=== PATIENT | female | born 1995 | race Caucasian/White ===

== ENCOUNTER 2016-10-11 13:17 | Emergency (ER) | payer BC ==
[2016-10-11 15:01] VITALS: BP 108/73
--- NOTE | 2016-10-11 15:25 | UC ---
Knee Pain HPI - HPI Summary HPI Summary: RIGHT KNEE PAIN X 1 DAY S/P FALL SHE WAS RUNNING , TWISTED HER RIGHT KNEE THIS AM HX OF RIGHT PATELLA DISLOCATION + PAIN , SWELLING OF RIGHT KNEE - History of Current Complaint Chief Complaint: UCLowerExtremity Stated Complaint: RIGHT KNEE INJURY Time Seen by Provider: 10/11/16 15:07 Hx Obtained From: Patient, Family/Contact Center Assistant Hx Last Menstrual Period: 03/02/16 Onset/Duration: Sudden Onset, Lasting Days - 1, Still Present Severity Initially: Severe Severity Currently: Severe Character: Aching, Throbbing Aggravating Factor(s): Movement, Weight Bearing Alleviating Factor(s): Rest, Cold Associated Signs And Symptoms: Positive: Swelling, Weakness. Negative: Redness , Fever, Numbness Able to Bear Weight: Yes - Allergies/Home Medications Allergies/Adverse Reactions: Allergies Allergy/AdvReac Type Severity Reaction Status Date / Time Ibuprofen Allergy Hives Verified 10/11/16 14:52 Home Medications: Home Medications Control Med 1 tab DAILY 10/11/16 [History] PMH/Surg Hx/FS Hx/Imm Hx Cardiovascular History Of: Denies: Hypertension Respiratory History Of: Denies: Asthma - Surgical History Surgical History: None - Family History Known Family History: Positive: Cardiac Disease, Hypertension, Diabetes - Social History Alcohol Use: None Substance Use Type: None Smoking Status (MU): Never Smoked Tobacco Have You Smoked in the Last Year: No - Immunization History Most Recent Influenza Vaccination: 2015 Most Recent Tetanus Shot: UTD Most Recent Pneumonia Vaccination: N/A Vaccination Up to Date: Yes Review of Systems Constitutional: Negative Skin: Negative Eyes: Negative ENT: Negative Respiratory: Negative All Other Systems Reviewed And Are Negative: Yes Physical Exam Triage Information Reviewed: Yes Appearance: Well-Appearing, Well-Nourished, Pain Distress Vital Signs: Initial Vital Signs Temp 99.1 F 10/11/16 14:53 Pulse 94 10/11/16 14:53 Resp 18 10/11/16 14:53 BP 108/73 10/11/16 14:53 Pulse Ox 99 10/11/16 14:53 Vital Signs Reviewed: Yes Eyes: Positive: Conjunctiva Clear ENT: Positive: Normal ENT inspection, Hearing grossly normal, Pharynx normal Neck: Positive: Supple, Nontender, No Lymphadenopathy Respiratory: Positive: Chest non-tender, Lungs clear, Normal breath sounds Cardiovascular: Positive: RRR, No Murmur, Pulses Normal Musculoskeletal: Positive: Other: - RIGHT KNEE: + SWELLING , + LARGE EFFUSION , DIFFUSE TENDERNESS, LIMITED ROM ON FLEXION UC Physical Exam Vital Signs On Initial Exam: Initial Vitals Temp Pulse Resp BP Pulse Ox 99.1 F 94 18 108/73 99 10/11/16 14:53 10/11/16 14:53 10/11/16 14:53 10/11/16 14:53 10/11/16 14:53 Knee Pain Course/Dx - Differential Dx/Diagnosis Provider Diagnoses: RIGHT KNEE INJURY. RIGHT KNEE EFFUSION Discharge - Discharge Plan Condition: Stable Disposition: HOME Patient Education Materials: Swollen Knee Joint (ED) Referrals: Farheen Freitas MD [Primary Care Provider] - Narayan Morocho MD [Medical Doctor] - As Soon As Possible
--- NOTE | 2016-10-11 16:10 | RAD ---
HISTORY: Status post fall, twisted right knee COMPARISONS: April 13, 2016 VIEWS: 5, Frontal, lateral, axial, and oblique views of the right knee FINDINGS: BONE DENSITY: Normal. BONES: There is a small bone fragment along the medial aspect of the patella on the axial views. JOINTS: There is a lipohemarthrosis. ALIGNMENT: There is no dislocation. SOFT TISSUES: Unremarkable. OTHER FINDINGS: None. IMPRESSION: THERE IS LIPOHEMARTHROSIS SUGGESTIVE OF OCCULT FRACTURE GIVEN THE HISTORY OF TRAUMA. THERE IS A SMALL BONE FRAGMENT ALONG THE MEDIAL ASPECT OF THE PATELLA WHICH MAY REFLECT AN AVULSION FRACTURE.. RECOMMEND CORRELATION WITH SITE OF PAIN.
== END 2016-10-11 16:06 | disposition home or self-care (01) ==
LOC: UCCORT 13:17
DX: S89.91XA Unspecified injury of right lower leg, initial encounter (principal); W19.XXXA Unspecified fall, initial encounter; Y93.02 Activity, running; Y92.9 Unspecified place or not applicable; M25.461 Effusion, right knee; Z88.6 Allergy status to analgesic agent
CPT/HCPCS: 99212; G0463

== ENCOUNTER 2018-03-27 15:02 | Emergency (ER) | payer BC ==
[2018-03-27 16:25] VITALS: BP 145/93
--- NOTE | 2018-03-27 16:58 | UC ---
Knee Pain HPI - HPI Summary HPI Summary: C/O dislocation right knee cap/ recurrent. Last time 2 years ago. On crutches. Also c/o congestion, sore throat and coughing with coughing fits. Wheezing with exercise. - History of Current Complaint Chief Complaint: UCGeneralIllness Stated Complaint: R KNEE INJ & COLD SYMPTOMS FOR 2 WKS Time Seen by Provider: 03/27/18 16:48 Hx Obtained From: Patient Hx Last Menstrual Period: 11/28/17 -3 MONTH BC CYCLE SKIPPED [place] WEEK THIS MONTH ?: No Onset/Duration: Sudden Onset - knee pain this afternoon., Lasting Weeks - URI symptoms for 2 weeks. Severity Currently: Moderate Pain Intensity: 5 Character: Dull, Aching, Throbbing Aggravating Factor(s): Movement, Weight Bearing Alleviating Factor(s): Rest Associated Signs And Symptoms: Positive: Swelling, Bruising. Negative: Weakness , Numbness, Tingling Able to Bear Weight: No - Allergies/Home Medications Allergies/Adverse Reactions: Allergies Allergy/AdvReac Type Severity Reaction Status Date / Time ibuprofen Allergy Hives Verified 03/27/18 16:23 PMH/Surg Hx/FS Hx/Imm Hx Previously Healthy: Yes - Surgical History Surgical History: None - Family History Known Family History: Positive: Cardiac Disease, Hypertension, Diabetes - Social History Occupation: Student Lives: Dormitory/Roommates Alcohol Use: Occasionally Substance Use Type: None Smoking Status (MU): Never Smoked Tobacco Have You Smoked in the Last Year: No - Immunization History Most Recent Influenza Vaccination: 2016 Most Recent Tetanus Shot: UTD Most Recent Pneumonia Vaccination: N/A Vaccination Up to Date: Yes Review of Systems ENT: Nasal Discharge Respiratory: Shortness Of Breath - with exertion, Cough Musculoskeletal: Arthralgia - right knee Is Patient Immunocompromised?: No All Other Systems Reviewed And Are Negative: Yes Physical Exam Triage Information Reviewed: Yes Appearance: Ill-Appearing, Pain Distress, Obese Vital Signs: Initial Vital Signs Temp 98.1 F 03/27/18 16:19 Pulse 113 03/27/18 16:19 Resp 16 03/27/18 16:19 BP 145/93 03/27/18 16:19 Pulse Ox 100 03/27/18 16:19 Eyes: Positive: Conjunctiva Clear ENT: Positive: Nasal congestion - with allergic changes., TMs normal Neck exam: Normal Respiratory: Positive: Wheezing - expiratory wheeze with coughing Cardiovascular Exam: Normal Musculoskeletal: Positive: ROM Limited @ - right knee with significant swelling , Other: - Tender over the right patella and inner right knee Neurological Exam: Normal Psychological Exam: Normal Skin Exam: Normal Knee Pain Course/Dx - Differential Dx/Diagnosis Differential Diagnosis/HQI/PQRI: Dislocation, Fracture (Closed), Sprain, Strain Provider Diagnoses: Recurrent right patellar dislocation. Acute URI. Acute bronchospasm Discharge - Sign-Out/Discharge Documenting (check all that apply): Patient Departure All imaging exams completed and their final reports reviewed: Yes - Discharge Plan Condition: Stable Disposition: HOME Prescriptions: Albuterol HFA INHALER* [Ventolin HFA Inhaler*] 2 puff INH Q4H PRN #1 mdi PRN Reason: Wheezing predniSONE TAB* [Deltasone 20 MG TAB*] 20 mg PO DAILY #18 tab Patient Education Materials: Patellar Dislocation (ED), Upper Respiratory Infection (ED), Wheezing (ED), Prednisone (By mouth) Referrals: Mignon Hubbard PA [Primary Care Provider] - Cyril Martinez MD [Medical Doctor] - 2 Weeks (recheck knee) - Billing Disposition and Condition Condition: STABLE Disposition: Home
--- NOTE | 2018-03-27 17:28 | RAD ---
HISTORY: patellar dislocation COMPARISONS: None VIEWS: 4 , Frontal, lateral, axial, and oblique views of the right knee FINDINGS: BONE DENSITY: Normal. BONES: There is no displaced fracture. JOINTS: There is no arthropathy. There is no suprapatellar joint effusion or lipohemarthrosis. ALIGNMENT: There is no dislocation. SOFT TISSUES: Unremarkable. OTHER FINDINGS: None. IMPRESSION: NO ACUTE OSSEOUS INJURY. IF SYMPTOMS PERSIST, RECOMMEND REPEAT IMAGING.
== END 2018-03-27 17:54 | disposition home or self-care (01) ==
LOC: UCCORT 15:02
DX: Z88.6 Allergy status to analgesic agent (principal); M22.01 Recurrent dislocation of patella, right knee; J06.9 Acute upper respiratory infection, unspecified; J98.01 Acute bronchospasm
CPT/HCPCS: 99213; G0463